=== PATIENT | male | born 1940 | race Caucasian/White ===

== ENCOUNTER → 2018-09-16 | Outpatient (REF) | payer OTHER, MEDICARE | LOC: M SMT 16:53 | DX: R97.20 Elevated prostate specific antigen [PSA] (principal); Z79.899 Other long term (current) drug therapy | CPT/HCPCS: 87086 ==

== ENCOUNTER → 2018-09-28 | Outpatient (CLI) | payer OTHER | LOC: M SMT PRO 09:22 | DX: C61 Malignant neoplasm of prostate (principal) | CPT/HCPCS: G0416 ==

== ENCOUNTER → 2018-10-04 | Outpatient (CLI) | payer OTHER ==
[2018-10-04 13:21] LABS: ANION GAP 3 MEQ/L (8-16); BLOOD UREA NITROGEN 17 MG/DL (7-18); CALCIUM LEVEL 8.7 MG/DL (8.8-10.2); CARBON DIOXIDE LEVEL 31 MEQ/L (21-32); CHLORIDE LEVEL 108 MEQ/L (98-107); CREATININE FOR GFR 1.39 MG/DL (0.70-1.30); GLOMERULAR FILTRATION RATE 52.5 (>42); GLUCOSE, FASTING 84 MG/DL (70-100); POTASSIUM SERUM 4.8 MEQ/L (3.5-5.1); SODIUM LEVEL 142 MEQ/L (136-145)
== END ==
LOC: M SMT 10:14
DX: C61 Malignant neoplasm of prostate (principal)
CPT/HCPCS: 80048

== ENCOUNTER → 2018-11-01 | Outpatient (CLI) | payer OTHER ==
[~2018-11-01] MED LIST: ISOVUE-370 76% 100ML VIAL (Q9967) As Ordered ONE
--- NOTE | 2018-11-01 14:55 | REP ---
Whole body radionuclide bone scan: History: Prostate cancer. No comparison study. Technique: 21.7 mCi technetium 99m MDP is injected and standard whole body bone scan imaging was acquired. Scintigraphic findings: There is a normal distribution of skeletal tracer with uptake in bilateral kidneys and in the urinary bladder. There is an arthritic pattern of increased uptake involving both knees and bilaterally in the shoulders and in the manubrial clavicular articulations. Degenerative disc and facet uptake is seen in the cervical spine and in the lumbar spine. There is no evidence to suggest skeletal metastatic disease. Impression: Degenerative and osteoarthritic uptake pattern. No evidence to suggest skeletal metastasis. Electronically Signed by Mikel Marr MD 11/01/2018 08:10 P
--- NOTE | 2018-11-05 10:43 | REP ---
Clinical: Prostate cancer. Technique: Axial contrast enhanced images from the lung bases to the pubic symphysis using 100 ml Isovue 370 intravenous contrast material with delayed images of the abdomen as well as coronal and sagittal re-formations. Comparison: None. Findings: Liver, spleen, pancreas, bilateral adrenal glands are normal. The patient is status post cholecystectomy. Age-related renal changes including diffuse cortical thinning and increased central sinus fat with mild chronic perinephric stranding noted. No hydronephrosis. Evaluation of the enteric system is without obstruction or acute inflammatory process. Normal terminal ileum and appendix are identified in the right lower quadrant. Pelvis demonstrates normal bladder and mildly prominent prostate gland measuring approximately 3.9 cm maximal diameter without periprostatic infiltration or obvious pelvic adenopathy. No ascites. No free air. No intraperitoneal or retroperitoneal adenopathy. Atherosclerotic changes of the aorta and vasculature without aneurysm or dissection. Surrounding musculoskeletal structures demonstrate age-related degenerative changes without significant focal osseous abnormality by CT evaluation. Lung bases demonstrate dependent and chronic appearing interstitial changes. Impression: No acute abdominopelvic pathology appreciated. Electronically Signed by Keith Spring MD 11/05/2018 10:36 A
== END ==
LOC: M RAD 08:21
PROVIDERS: ATTEND Urology
DX: C61 Malignant neoplasm of prostate (principal)
CPT/HCPCS: 74177; 78306; A9503; Q9967

== ENCOUNTER → 2018-11-25 | Outpatient (CLI) | payer MEDICARE, OTHER ==
--- NOTE | 2018-11-28 09:30 | RADONC ---
RADIATION ONCOLOGY CONSULTATION NOTE DATE: 11/25/2018 CHART NUMBER: [id number] DIAGNOSIS: Prostate cancer. STAGE: II C, T2c, N0, M0, Lakisha score 7 (4-3), grade group 3, PSA 7.8. ECOG PERFORMANCE STATUS: Zero. CONSULTATION NOTE: Mr. Monzon is a very pleasant, 78-year-old white male with the diagnosis of what appears to be a stage II C, [id number], moderate to poorly differentiated Charleston score 7 (4-3) adenocarcinoma of the prostate with a PSA level of 7.8 who is presenting to us today for consideration of definitive external beam radiation therapy with IMRT/IGRT. HISTORY OF PRESENT ILLNESS: The patient was in his usual state of health but was found to have a PSA level of 7.8 on 09/09/2018. On 09/28/2018, the patient underwent prostatic needle biopsy and pathology revealed a Charleston score 7 (4-3) adenocarcinoma of the prostate involving both the left and right sides. The patient had radiation recommended to him and is presenting to us to discuss the possibility of definitive external beam radiation therapy with IMRT/IGRT. PAST MEDICAL HISTORY: The patient's past medical history is positive for cardiac problems, hypothyroidism and diabetes. He has had two heart stents placed and has had carpal tunnel surgery. ALLERGIES: The patient has NO KNOWN DRUG ALLERGIES. SOCIAL HISTORY: The patient does not smoke cigarettes nor abuse alcohol. FAMILY HISTORY: The patient's family history is positive for a sister with colon cancer, a mother with lung cancer and a brother with liver cancer. REVIEW OF SYSTEMS: The patient's review of systems is positive for some hearing loss as well as dental problems but is otherwise noncontributory. Denies nausea, vomiting, fevers, chills, night sweats, diplopia, headaches, anxiety or depression, anorexia, weight loss, visual disturbances, chest pain, urinary or bowel difficulties, bone pain, or neurological problems. PHYSICAL EXAMINATION: The patient is a well-developed, well-nourished male in no acute distress. HEENT exam is normocephalic, atraumatic. Extraocular movements are intact. There is no palpable cervical, supraclavicular, infraclavicular, axillary, or inguinal lymphadenopathy present. Lungs are clear to auscultation and percussion. Heart has a regular rate and rhythm. Abdomen is benign with no hepatosplenomegaly, masses, or tenderness. Rectal examination reveals a normal anal sphincter tone. His prostate is diffusely hard with some right-sided nodularity. Skeletal examination reveals no tenderness to pressure or percussion of the bony skeleton. Extremities reveal no clubbing, cyanosis, or edema. Neurologic exam is grossly intact, as is the remainder of the physical examination. MEDICAL NECESSITY: IMRT/IGRT is clinically indicated for the highly conformal dose planning required. The target volume is in close proximity to critical structures, such as the rectum, bladder, small bowel, and femoral heads. The volume of interest must be covered with narrow margins to adequately protect immediately adjacent structures. The plan requires interpretation of complex testing such as CT localization. As noted above, special planning (IMRT) and localizing (IGRT) is required and essential to maximally protect sensitive normal tissue structures which cannot be accomplished using conventional 3-dimensional planning. ASSESSMENT: Clearly the patient is a candidate for external beam radiation therapy and I have so informed him. I have discussed with the patient in detail the potential benefits as well as possible acute and chronic sequelae of external beam radiation therapy. We discussed logistics of treatment planning, simulation subsequent fractionated daily radiation treatments. The patient is scheduled for placement of his fiducial markers on 12/07/2018. He is also scheduled to begin his androgen deprivation treatments at that time as well. I had a very lengthy discussion with this patient and his . Apparently they have a place in [place] that they go to every year. Indeed they are just outside the city of [place]. They have been asking whether or not treatment can be delivered there and I have let them know that of course that can be done. Indeed, I have brought in our nurse navigator Brandy Christopher to discuss this with them. In light of the fact that we have another 12 days before the placement of fiducial markers, we could set up a consultation with a radiation oncologist near his [place] home to follow. After the fiducial markers are placed, the patient could go down to [place] and receive his treatments quite safely there. While discussing this with the patient, apparently he lives an hour [place] a half drive from here, which would make 3 hours of commuting a day for 9 weeks on ice and snow during the winter. In [place] he would be maybe 15 minutes from a radiation center and not have to risk be climate problems. I let the patient know we will support him no matter what his decision. If he wishes to be treated in [place] we can help arrange that. If he wishes to say stay here we are more than happy to treat him here of course. The patient and his family will get back to me next week with a final decision. In the meantime, this will not delay their treatment at all since placement of the fiducial markers must come first. Thank you for allowing us to participate in the care of this very pleasant gentleman. If I could be of any further assistance, please feel free to contact me anytime. As always, warm regards. cc: Nathan Teague MD
== END ==
LOC: M ONCR 09:55
PROVIDERS: ATTEND Radiology Radiation Oncology
DX: C61 Malignant neoplasm of prostate (principal)

== ENCOUNTER → 2018-12-07 | Outpatient (CLI) | payer MEDICARE ==
--- NOTE | 2018-12-07 14:15 | REP ---
Ultrasound guidance, prostate transrectal: History: Elevated PSA. Findings: Transrectal sonographic guidance is provided to Dr. Teague who placed fiducial marking devices in the prostate. Electronically Signed by Mikel Marr MD 12/07/2018 05:36 P
== END ==
LOC: M SMT 09:37
PROVIDERS: ATTEND Urology
DX: C61 Malignant neoplasm of prostate (principal)

== ENCOUNTER → 2021-08-13 | Outpatient (REF) | payer MEDICARE | LOC: M LAB REF 17:15 | PROVIDERS: ATTEND Internal Medicine Nephrology | DX: E83.42 Hypomagnesemia (principal) ==

== ENCOUNTER → 2021-08-23 | Outpatient (CLI) | payer MEDICARE ==
--- NOTE | 2021-08-23 12:47 | REP ---
INDICATION: CKD STAGE 3B, MALIGN NEOPL PROSTATE, NOCTURIA COMPARISON: None TECHNIQUE: Real time pearce scale ultrasound examination using curved array transducer. FINDINGS: Kidneys are normal in reniform shape with mildly increased parenchymal echotexture as well as increased central sinus fat suggesting chronic medical renal disease. No hydronephrosis, nephrolithiasis, cystic or renal mass lesion. Right kidney measures 11.3 x 4.8 x 4.8 cm. Left kidney measures 10.4 x 4.3 x 5.6 cm. IMPRESSION: 1. Chronic medical renal disease. No hydronephrosis. <Electronically signed by Keith Spring > 08/23/21 [id number]
--- NOTE | 2021-08-23 12:47 | REP ---
INDICATION: CKD STAGE 3B, MALIGN NEOPL PROSTATE, NOCTURIA COMPARISON: None TECHNIQUE: Real time B-mode ultrasound examination using curved array transducer. FINDINGS: Bladder is normal in appearance without wall thickening or mass lesion. Bilateral ureteral jets are identified. Prevoid bladder measures 10.8 x 6.5 x 6.0 cm (274 cc). Postvoid bladder measures 2.2 x 2.1 x 1.5 cm (4.5 cc). Postvoid residual: 1.6% IMPRESSION: 1. Normal bladder ultrasound. <Electronically signed by Keith Spring > 08/23/21 [id number]
== END ==
LOC: M RAD 11:25
PROVIDERS: ATTEND Internal Medicine Nephrology
DX: N18.32 Chronic kidney disease, stage 3b (principal); R35.1 Nocturia; C61 Malignant neoplasm of prostate

== ENCOUNTER → 2021-09-19 | Outpatient (REF) | payer MEDICARE | LOC: M LAB REF 17:23 | PROVIDERS: ATTEND Internal Medicine Nephrology | DX: E83.42 Hypomagnesemia (principal) ==

== ENCOUNTER → 2023-03-11 | Outpatient (REF) | payer MEDICARE ==
[2023-03-13 23:07] LABS: PSA TOTAL <0.1 ng/mL (0.0-4.0)
== END ==
LOC: M LAB REF 17:16
PROVIDERS: ATTEND Internal Medicine Nephrology
DX: Z85.46 Personal history of malignant neoplasm of prostate (principal); R97.20 Elevated prostate specific antigen [PSA]

== ENCOUNTER → 2024-09-13 | Outpatient (REF) | payer MEDICARE | LOC: M LAB REF 17:41 | PROVIDERS: ATTEND Internal Medicine Nephrology | DX: Z85.46 Personal history of malignant neoplasm of prostate (principal) ==